=== PATIENT | female | born 1950 | race Caucasian/White ===

== ENCOUNTER 2018-09-18 14:21 | Emergency (ER) | payer OTHER ==
[~2018-09-18] VITALS: Ht 162.6 cm; Wt 59.9 kg
[~2018-09-18 14:21] MED LIST: MOTION SICKNESS25 M1 PO
[2018-09-18] MEDS ORDERED: PREDNISONE5 M1 PO (14:26)
[2018-09-18] MEDS ORDERED: CANABIS PO (14:27)
== END 2018-09-18 19:10 | disposition home or self-care (01) ==
LOC: ER 14:21
DX: R42 Dizziness and giddiness (principal)

== ENCOUNTER 2019-02-25 08:29 | Emergency (ER) | payer OTHER ==
[~2019-02-25] VITALS: Ht 162.6 cm; Wt 59.0 kg
[~2019-02-25 08:29] MED LIST changes: +CANABIS PO; +PREDNISONE5 M1 PO
== END 2019-02-25 12:52 | disposition home or self-care (01) ==
LOC: ER 08:29
DX: R04.0 Epistaxis (principal)

== ENCOUNTER 2021-11-08 09:21 | Emergency (ER) | payer OTHER ==
[~2021-11-08] VITALS: Ht 162.6 cm; Wt 61.2 kg
== END 2021-11-08 15:29 | disposition home or self-care (01) ==
LOC: ER 09:21
DX: R53.1 Weakness (principal); F12.90 Cannabis use, unspecified, uncomplicated; M06.9 Rheumatoid arthritis, unspecified; Z88.1 Allergy status to other antibiotic agents; Z88.8 Allergy status to other drugs, medicaments and biological substances; Z88.6 Allergy status to analgesic agent; Z88.2 Allergy status to sulfonamides

== ENCOUNTER 2024-03-18 16:19 | Emergency (ER) | payer OTHER ==
[~2024-03-18] VITALS: Ht 170.2 cm; Wt 68.0 kg
== END 2024-03-18 17:54 | disposition home or self-care (01) ==
LOC: ER 16:19
DX: M19.029 Primary osteoarthritis, unspecified elbow (principal); Z88.1 Allergy status to other antibiotic agents